=== PATIENT | female | born 1975 | race African-American/Black ===

== ENCOUNTER → 2022-09-25 | Day surgery (SDC) | payer OTHER ==
[~2022-09-25] MED LIST: DEXAMETHASONE SOD PHOS 10 MG/1 ML VIAL ONE; FENTANYL CITRATE/PF 100MCG/2 ML INJ ONE; HYDROCHLOROTHIA25 MG PO; IOPAMIDOL 200 MG/ML 20 ML VIAL IT ONE; IRON PO; KETAMINE HCL INJ 50 MG/ML 10 ML VIAL ONE; LIDOCAINE HCL 1% 30ML-PF VIAL ONE; LIDOCAINE HCL 2% LOCAL INJ 5 ML SDV VIAL INJ ONE; LISINOPRIL40 MG PO; MIDAZOLAM HCL 2 MG/2 ML VIAL ONE; NEURONTIN300 MG PO; POVIDONE IODINE 0.05% 0.05 % ML PO ONE; PROPOFOL IV EMULSION 10 MG/ML 20 ML VIAL ONE
[2022-09-25 07:15] VITALS: BP 137/79
== END | disposition home or self-care (01) ==
LOC: OR 06:54
PROVIDERS: ATTEND Physical Medicine & Rehabilitation Pain Medicine
DX: M54.16 Radiculopathy, lumbar region (principal); M48.062 Spinal stenosis, lumbar region with neurogenic claudication; M43.16 Spondylolisthesis, lumbar region; G47.33 Obstructive sleep apnea (adult) (pediatric); I10 Essential (primary) hypertension; D64.9 Anemia, unspecified; Z01.810 Encounter for preprocedural cardiovascular examination; Z79.899 Other long term (current) drug therapy
CPT/HCPCS: 64483; 93005; J1100; J2001 ×2; J2250; J2704; J3010; Q9967; 77003

== ENCOUNTER → 2022-10-23 | Day surgery (SDC) | payer OTHER ==
[2022-10-21 09:17] LABS: ANION GAP 13.7 mmol/L (8-16); CALCIUM 9.1 mg/dL (8.4-10.2); CREATININE, SERUM 0.71 mg/dL (0.57-1.11); POTASSIUM 3.7 mmol/L (3.5-5.1)
[~2022-10-23] MED LIST changes: +BUPIVACAINE HCL 0.5% INJ 30 ML VIAL INJ ONE; -DEXAMETHASONE SOD PHOS 10 MG/1 ML VIAL ONE; -FENTANYL CITRATE/PF 100MCG/2 ML INJ ONE; -KETAMINE HCL INJ 50 MG/ML 10 ML VIAL ONE; -MIDAZOLAM HCL 2 MG/2 ML VIAL ONE; -POVIDONE IODINE 0.05% 0.05 % ML PO ONE; +TRIAMCINOLONE ACET 40 MG/ML VIAL ONE
[2022-10-23 07:15] VITALS: BP 152/84
== END | disposition home or self-care (01) ==
LOC: OR 07:06
PROVIDERS: ATTEND Physical Medicine & Rehabilitation Pain Medicine
DX: M47.896 Other spondylosis, lumbar region (principal); M54.16 Radiculopathy, lumbar region; M43.16 Spondylolisthesis, lumbar region; M48.061 Spinal stenosis, lumbar region without neurogenic claudication; I10 Essential (primary) hypertension; Z01.812 Encounter for preprocedural laboratory examination; Z79.899 Other long term (current) drug therapy
CPT/HCPCS: 36415; 64493; 64494; 64495; 80048; J2001 ×2; J2704; J3301; Q9967; 77003

== ENCOUNTER → 2022-12-11 | Day surgery (SDC) | payer OTHER ==
[~2022-12-11] MED LIST changes: +GLYCOPYRROLATE INJ 0.2 MG/ML VIAL ONE; +LACTATED RINGER'S 1,000 ML ONE; +POVIDONE IODINE 0.05% 0.05 % ML PO ONE
[2022-12-11 06:49] VITALS: TEMP 97.6
[2022-12-11 07:20] VITALS: BP 153/87; PULSE 76; RESP 16; O2SAT 97
== END | disposition home or self-care (01) ==
LOC: OR 08:20
PROVIDERS: ATTEND Physical Medicine & Rehabilitation Pain Medicine
DX: M47.896 Other spondylosis, lumbar region (principal); M54.16 Radiculopathy, lumbar region; M43.16 Spondylolisthesis, lumbar region; M48.061 Spinal stenosis, lumbar region without neurogenic claudication; G47.33 Obstructive sleep apnea (adult) (pediatric); I10 Essential (primary) hypertension; I25.10 Atherosclerotic heart disease of native coronary artery without angina pectoris; D64.9 Anemia, unspecified; E66.9 Obesity, unspecified; Z01.810 Encounter for preprocedural cardiovascular examination; Z79.899 Other long term (current) drug therapy; Z68.43 Body mass index [BMI] 50.0-59.9, adult
CPT/HCPCS: 64493; 64494; 64495; 93005; J2001 ×2; J2704; J3301; J7121; Q9967; 77003

== ENCOUNTER → 2023-09-25 | Day surgery (SDC) | payer OTHER ==
[~2023-09-25] MED LIST changes: -BUPIVACAINE HCL 0.5% INJ 30 ML VIAL INJ ONE; +FENTANYL CITRATE/PF 100MCG/2 ML INJ ONE; +GABAPENTIN300 MG PO; -GLYCOPYRROLATE INJ 0.2 MG/ML VIAL ONE; -IOPAMIDOL 200 MG/ML 20 ML VIAL IT ONE; -LACTATED RINGER'S 1,000 ML ONE; -LIDOCAINE HCL 1% 30ML-PF VIAL ONE; +LISINOPRIL10 MG PO; +MIDAZOLAM HCL 2 MG/2 ML VIAL ONE; -POVIDONE IODINE 0.05% 0.05 % ML PO ONE; -TRIAMCINOLONE ACET 40 MG/ML VIAL ONE; +VICTOZA 2-0.6 MG/0.1 SC
[2023-09-25] MEDS: LACTATED RINGER'S 1,000 ML ONE (12:40)
[2023-09-25 14:43] VITALS: TEMP 97.5
[2023-09-25 15:05] VITALS: BP 138/85; PULSE 83; RESP 18; O2SAT 99
== END | disposition home or self-care (01) ==
LOC: OR 11:57
PROVIDERS: ATTEND Internal Medicine Gastroenterology
DX: D50.9 Iron deficiency anemia, unspecified (principal); D12.4 Benign neoplasm of descending colon; K29.50 Unspecified chronic gastritis without bleeding; K31.89 Other diseases of stomach and duodenum; K44.9 Diaphragmatic hernia without obstruction or gangrene; K63.9 Disease of intestine, unspecified; K64.8 Other hemorrhoids; G47.33 Obstructive sleep apnea (adult) (pediatric); R79.89 Other specified abnormal findings of blood chemistry; I10 Essential (primary) hypertension; E66.01 Morbid (severe) obesity due to excess calories; Z79.85 Long-term (current) use of injectable non-insulin antidiabetic drugs; Z79.899 Other long term (current) drug therapy; Z68.44 Body mass index [BMI] 60.0-69.9, adult; Z90.710 Acquired absence of both cervix and uterus
CPT/HCPCS: 43239; 45380; 45384; J2001; J2250; J2704; J3010; J7121